=== PATIENT | female | born 1975 | race Caucasian/White ===

== ENCOUNTER 2022-07-15 08:30 | Inpatient (IN) ==
--- NOTE | 2022-07-15 08:55 | Emergency Department Note ---
HPI General Chief complaint: Back Pain/Injury Stated complaint: Upper back pain Time Seen by Provider: 07/15/22 08:54 Source: patient Mode of arrival: ambulatory Limitations: no limitations History of Present Illness HPI Narrative: Narrative: Patient is a 46-year-old female with no significant medical history who presents to the emergency department due to back pain. She states that she fell 2 weeks ago, and since then has had upper back pain on the left. She states that it is sharp in nature and worsens with deep breathing, certain movements, cough, and sneeze. She denies radiation of this pain. She denies any palliative factors. She denies any other concerns at this time. Related Data Home Medications Medication Instructions Recorded Confirmed acyclovir 400 mg tablet 400 mg PO BID 11/28/21 07/15/22 cetirizine 10 mg tablet (Zyrtec) 10 mg PO QDAY PRN allergies 02/11/22 07/15/22 metoclopramide HCl 5 mg tablet 5 mg PO QAC PRN nausea and vomiting 02/11/22 07/15/22 Previous Rx's Medication Instructions Recorded albuterol sulfate 90 mcg/actuation 2 puff inhalation Q4-6H PRN 03/10/22 aerosol inhaler shortness of breath or wheezing #8.5 grams ibuprofen 800 mg tablet 800 mg PO TID PRN pain #90 tabs 03/10/22 gabapentin 400 mg capsule 400 mg PO QHS #30 caps 06/04/22 lurasidone 80 mg tablet (Latuda) 80 mg PO QPM for depressive 06/04/22 disorder #30 tabs ondansetron 4 mg disintegrating 4 mg PO Q8H PRN nausea and 06/10/22 tablet vomiting #90 tabs lamotrigine 25 mg tablet See Rx Instructions .Route 07/01/22 .COMPLEX Mood #45 tabs trazodone 150 mg tablet 150 mg PO HS for insomnia #30 tabs 07/08/22 lorazepam 1 mg tablet 1 mg PO QDAY #28 tabs 07/09/22 nitrofurantoin 100 mg PO BID #10 caps 07/11/22 monohydrate/macrocrystals 100 mg capsule (Macrobid) Allergies Allergy/AdvReac Type Severity Reaction Status Date / Time Sulfa (Sulfonamide Allergy Severe Rash with Verified 07/07/22 15:19 Antibiotics) possible anaphylaxis Review of Systems ROS ROS Narrative: Narrative: Constitutional: Denies fever or weakness Eyes: Denies eye pain or vision change ENT ED: Denies throat pain or rhinorrhea Cardiovascular: Denies chest pain or edema Respiratory: Denies shortness of breath or cough Gastrointestinal: Denies abdominal pain, nausea, vomiting, diarrhea, constipat ion, hematochezia or melena Musculoskeletal: Reports back pain; Denies myalgia Integumentary: Denies rash or lesions Neurological: Denies headache, weakness, numbness, confusion, abnormal gait or dizziness Endocrine: Denies fatigue or polyuria Hematological/Lymphatic: Denies easy bleeding or easy bruising PFSH Narrative Patient History Narrative: Narrative: Medical/Surgical/Family History All Active Problems (Updated 07/15/22 @ 15:03 by Favio Vela MD) Acute pancreatitis (Acute) Irregular periods (Chronic) Hot flashes (Chronic) Night sweats (Chronic) Left hip pain (Chronic) Bipolar disorder (Chronic) Anxiety (Chronic) PTSD (post-traumatic stress disorder) (Chronic) Chronic pain (Chronic) Lumbar radiculopathy (Chronic) Other low back pain (Chronic) History of seizure (Chronic) Tobacco dependence (Chronic) Major depressive disorder, recurrent (Acute) Insomnia (Acute) Medical History Anxiety Chronic pain Depression History of seizure Hot flashes Insomnia Irregular periods Left hip pain Lumbar radiculopathy Major depressive disorder, recurrent Night sweats Other low back pain PTSD (post-traumatic stress disorder) Tobacco dependence Surgical History No pertinent past surgical history Family History Grandfather Dementia Paternal Type 2 diabetes mellitus Maternal Father Type 2 diabetes mellitus Chronic pain Alcohol abuse Bipolar 1 disorder, depressed ADHD Family/Other Type 2 diabetes mellitus Cousins Mother High blood pressure Arthritis Brother Bipolar 1 disorder, depressed Grandmother Bipolar 1 disorder, depressed Other Breast cancer Non-Hodgkins lymphoma Throat cancer Thyroid cancer Social History Smoking Status: Current every day smoker Alcohol Intake Frequency: a few times a week Substance Use: marijuana Exam Narrative Narrative: Narrative: General Limitations: no limitations General appearance: Present alert and in no apparent distress; Absent anxious, appears intoxicated or sleepy Head Head: Present atraumatic and normocephalic Eye Eye: Present EOMI; Absent scleral icterus or nystagmus ENT ENT: Present mucous membranes moist; Absent nasal congestion Neck Neck: Present full ROM; Absent tenderness Chest Chest: Present normal inspection and symmetric chest wall rise; Absent tenderness Respiratory Respiratory: Present normal lung sounds bilaterally; Absent respiratory distress or accessory muscle use Cardiovascular Cardiovascular: Present regular rate, normal rhythm and normal heart sounds Adbominal Abdominal: Present soft and normal bowel sounds; Absent distention, tenderness, guarding, rebound or rigidity Extremities Extremities: Present normal inspection and full ROM; Absent tenderness, pedal edema or pretibial edema Back Back: Present normal inspection, full ROM, tenderness (Left of thoracic spine) and CVA tenderness (L); Absent CVA tenderness (R) Neurological Neurological: Present alert and oriented X3 Psychiatric Psychiatric: Present normal affect and normal mood Skin Skin: Present warm (WNL), dry and normal color Course Vital Signs Vital signs: Vital Signs Temperature 97.5 F 07/15/22 08:31 Pulse Rate 87 07/15/22 08:31 Respiratory Rate 19 07/15/22 08:31 Blood Pressure 102/57 07/15/22 08:31 Pulse Oximetry (%) 98 07/15/22 08:31 Oxygen Delivery Method Room Air 07/15/22 08:31 Temperature 97.5 F 07/15/22 08:31 Pulse Rate 66 07/15/22 14:47 Respiratory Rate 19 07/15/22 08:31 Blood Pressure 100/54 07/15/22 14:47 Pulse Oximetry (%) 95 07/15/22 14:47 Oxygen Delivery Method Room Air 07/15/22 10:06 [facility] Narrative Medical decision making narrative: Narrative: Patient is a 46-year-old female who presents to the emergency department due to back pain. Differential diagnoses include ACS, musculoskeletal chest pain, and pneumonia. Patient has low risk Wells and is PERC negative, so pulmonary embolus is very unlikely. Patient's Chem-8, troponin, and EKG are reassuring. After reevaluation and to discuss findings patient endorsed radiation of the pain into the epigastric area. She still does not have any abdominal tenderness. With abdominal pain, as well as back pain there is some concern for potential pancreatitis. Abdominal labs have been ordered. Patient's hepatic panel is reassuring, but she does have an elevated lipase of 298. This is a likely explanation for abdominal pain and back pain. Patient is now receiving IV fluid and more medication for her pain. I have spoken to Dr. Boyer who has agreed to see and evaluate patient for admission. Lab Data 07/15/22 11:47 Labs: Lab Results 07/15/22 07/15/22 07/15/22 Range/Units 09:43 10:26 11:45 WBC (4.5-11.0) K/mcL RBC (3.59-5.38) M/mcL Hgb (11.2-15.7) g/dL Hct (34.1-44.9) % POC Hct 41.0 (36-48) MCV (80.0-100.0) fL MCH (26.0-34.0) pg MCHC (31.0-36.0) g/dL RDW (11.5-14.5) % Plt Count (140-440) K/mcL MPV (8.8-12.5) fL Immature Gran % (Auto) (0.0-0.5) % Neut % (Auto) (38.0-78.0) % Lymph % (Auto) (15.5-49.0) % [place] % (Auto) (1.0-12.0) % Eos % (Auto) (0.0-7.0) % Baso % (Auto) (0.0-2.0) % Lymph # (Auto) (1.50-4.80) K/mcL [place] # (Auto) (0.10-0.90) K/mcL Eos # (Auto) (0.00-0.70) K/mcL Baso # (Auto) (0.00-0.30) K/mcL Immature Gran # (0.00-0.05) K/mcl Absolute Neutrophils (1.80-8.00) K/mcL POC Sodium 139 (133-145) POC Potassium 4.4 (3.3-5.1) POC Chloride 104 (96-108) POC Total CO2 28.0 (22-30) POC BUN 17 (6-20) POC Creatinine 0.7 (0.6-1.2) POC Glucose 90 (70-105) POC WB Ioniz Calcium 1.24 (1.16-1.32) Total Bilirubin 0.2 (0.1-1.0) mg/dL Direct Bilirubin < 0.2 (0-0.3) mg/dL AST 21 (<32) U/L ALT 17 (<40) U/L Alkaline Phosphatase 71 (39-117) U/L Total Protein 6.8 (5.9-8.4) gm/dL Albumin 4.3 (3.2-5.2) gm/dL Globulin 2.5 (2.2-3.7) gm/dL Lipase 298 H (7-60) U/L Ethyl Alcohol mg/dL < 10.0 mg/dL Ethyl Alcohol g/dL < 0.010 (<0.010) gm/dL 07/15/22 Range/Units 11:47 WBC 9.5 (4.5-11.0) K/mcL RBC 3.95 (3.59-5.38) M/mcL Hgb 13.7 (11.2-15.7) g/dL Hct 40.2 (34.1-44.9) % POC Hct (36-48) MCV 101.8 H (80.0-100.0) fL MCH 34.7 H (26.0-34.0) pg MCHC 34.1 (31.0-36.0) g/dL RDW 11.5 (11.5-14.5) % Plt Count 266 (140-440) K/mcL MPV 10.7 (8.8-12.5) fL Immature Gran % (Auto) 0.2 (0.0-0.5) % Neut % (Auto) 64.0 (38.0-78.0) % Lymph % (Auto) 26.6 (15.5-49.0) % [place] % (Auto) 7.4 (1.0-12.0) % Eos % (Auto) 1.3 (0.0-7.0) % Baso % (Auto) 0.5 (0.0-2.0) % Lymph # (Auto) 2.53 (1.50-4.80) K/mcL [place] # (Auto) 0.70 (0.10-0.90) K/mcL Eos # (Auto) 0.12 (0.00-0.70) K/mcL Baso # (Auto) 0.05 (0.00-0.30) K/mcL Immature Gran # 0.02 (0.00-0.05) K/mcl Absolute Neutrophils 6.10 (1.80-8.00) K/mcL POC Sodium (133-145) POC Potassium (3.3-5.1) POC Chloride (96-108) POC Total CO2 (22-30) POC BUN (6-20) POC Creatinine (0.6-1.2) POC Glucose (70-105) POC WB Ioniz Calcium (1.16-1.32) Total Bilirubin (0.1-1.0) mg/dL Direct Bilirubin (0-0.3) mg/dL AST (<32) U/L ALT (<40) U/L Alkaline Phosphatase (39-117) U/L Total Protein (5.9-8.4) gm/dL Albumin (3.2-5.2) gm/dL Globulin (2.2-3.7) gm/dL Lipase (7-60) U/L Ethyl Alcohol mg/dL mg/dL Ethyl Alcohol g/dL (<0.010) gm/dL EKG Data EKG #1: EKG attestation: Yes I reviewed and interpreted this EKG. EKG results narrative: Sinus bradycardia with a rate of 54, normal axis, [place] 138, QRS of 77, QTC of 361, T wave flattening in aVL, and absence of ST elevation or depression. Discharge Plan Patient/Caregiver Discharge Instructions Pt seen by NITRO MAN/PA only: No Clinical Impression: Acute pancreatitis Patient Disposition: Xfer As Inpt ([facility]) Follow up with: Emerita Hawley PA-C [Primary Care Provider] - Prescriptions: No Action gabapentin 400 mg capsule 400 mg PO QHS Qty: 30 1RF Latuda 80 mg tablet 80 mg PO QPM Qty: 30 1RF lamotrigine 25 mg tablet See Rx Instructions .Route .COMPLEX Qty: 45 0RF Rx Instructions: 1 tab PO daily x 2 weeks, then 2 tabs PO daily Started 07/13. cetirizine [Zyrtec] 10 mg tablet 10 mg PO QDAY PRN (Reason: allergies) metoclopramide HCl 5 mg tablet 5 mg PO QAC PRN (Reason: nausea and vomiting) Rx Instructions: administer 30 minutes before meals ondansetron 4 mg tablet,disintegrating 4 mg PO Q8H PRN (Reason: nausea and vomiting) Qty: 90 2RF trazodone 150 mg tablet 150 mg PO HS Qty: 30 0RF lorazepam 1 mg tablet 1 mg PO QDAY Qty: 28 0RF nitrofurantoin monohyd/m-cryst [Macrobid] 100 mg capsule 100 mg PO BID Qty: 10 0RF Rx Instructions: must administer with a meal/food acyclovir 400 mg tablet 400 mg PO BID albuterol sulfate 90 mcg/actuation HFA aerosol inhaler 2 puff inhalation Q4-6H PRN (Reason: shortness of breath or wheezing) Qty: 8.5 0RF ibuprofen 800 mg tablet 800 mg PO TID PRN (Reason: pain) Qty: 90 3RF
[2022-07-15] MEDS ORDERED: KETOROLAC 60 MG/2 ML VIAL IM ONE (09:41)
[2022-07-15] MEDS ORDERED: LIDOCAINE PATCH TOPICAL ONE (09:41)
[2022-07-15] MEDS ORDERED: CYCLOBENZAPRINE 10 MG TABLET PO ONE (09:41)
--- NOTE | 2022-07-15 10:28 | XRay Report ---
INDICATION: Fall, posterior rib pain/tenderness TECHNIQUE: PA and lateral upright chest x-ray COMPARISON: Previous examination dated 07/23/2001 FINDINGS: Lungs: Lungs are negative. No focal pulmonary parenchymal infiltrate or mass Heart, vascular: No significant cardiomegaly. Pulmonary vascularity is normal. No pulmonary edema or pulmonary congestion Mediastinum, keely: No mediastinal widening. No hilar mass Pleura:No pleural fluid. No pleural-based mass or calcification. There is no hemothorax. No pneumothorax. Thoracic spine, ribs: No thoracic compression fracture. Ribs are negative. No fracture. No lytic lesion IMPRESSION: 1. Negative chest x-ray 2. No significant interval change Interpreted and Authenticated by: Cruz Woodall 07/15/22
[2022-07-15 10:42] LABS: POC Calcium, Ionized 1.24 (1.16-1.32); POC Creatinine 0.7 (0.6-1.2); POC Potassium 4.4 (3.3-5.1)
[2022-07-15] MEDS ORDERED: HYDROcodone/APAP 5/325MG TABLET PO ONE (11:46)
[2022-07-15 12:33] LABS: Basophils # (Auto) 0.05 K/mcL (0.00-0.30); Basophils % (Auto) 0.5 % (0.0-2.0); Eosinophils # (Auto) 0.12 K/mcL (0.00-0.70); Eosinophils % (Auto) 1.3 % (0.0-7.0); Hematocrit 40.2 % (34.1-44.9); Hemoglobin 13.7 g/dL (11.2-15.7); Lymphocytes # (Auto) 2.53 K/mcL (1.50-4.80); Lymphocytes % (Auto) 26.6 % (15.5-49.0); Mean Cell Volume 101.8 fL (80.0-100.0); Mean Corpuscular HGB Conc 34.1 g/dL (31.0-36.0); Mean Platelet Volume 10.7 fL (8.8-12.5); Monocytes % (Auto) 7.4 % (1.0-12.0); Platelet Count 266 K/mcL (140-440); RBC 3.95 M/mcL (3.59-5.38); Red Cell Distribution Width 11.5 % (11.5-14.5); WBC 9.5 K/mcL (4.5-11.0)
[2022-07-15 12:45] LABS: ALT/SGPT 17 U/L (<40); AST/SGOT 21 U/L (<32); Albumin 4.3 gm/dL (3.2-5.2); Alkaline Phosphatase 71 U/L (39-117); Bilirubin,Direct < 0.2 mg/dL (0-0.3); Bilirubin,Total 0.2 mg/dL (0.1-1.0); Globulin 2.5 gm/dL (2.2-3.7)
[2022-07-15] MEDS ORDERED: 0.9 % SODIUM CHLORIDE 1,000 ML IV ONE (12:48)
[2022-07-15] MEDS ORDERED: NICOTINE 21 MG PATCH TOPICAL ONE (13:12)
--- NOTE | 2022-07-15 13:55 | Ultrasound Report ---
INDICATION: Evaluate for gallstones, patient has pancreatitis TECHNIQUE: Grayscale and color flow Doppler spectral imaging COMPARISON: None. FINDINGS: Gallbladder:Negative. No cholelithiasis. No gallbladder wall thickening or pericholecystic fluid Common bile duct:No intra or extrahepatic bile duct dilatation.. Common bile duct measures3 mm Liver:No solid or cystic hepatic mass. Liver contour is smooth. No ascites.. Liver [id number] cm Portal vein:Normal hepatopedal portal venous flow Pancreas:Pancreas appears somewhat echogenic and heterogeneous. No pancreatic mass or peripancreatic abnormality identified. No cystic lesion. No evidence for pseudocyst IMPRESSION: 1. Negative gallbladder. No dilated bile ducts 2. Mildly echogenic and heterogeneous pancreas without focal abnormality Interpreted and Authenticated by: Cruz Woodall 07/15/22
[2022-07-15] MEDS ORDERED: ONDANSETRON 4 MG/2 ML VIAL IV ONE ×3 (14:05→19:29)
[2022-07-15] MEDS ORDERED: HYDROmorphone 0.5 MG/0.5 ML SYRINGE IV ONE (14:05)
[2022-07-15 14:35] LABS: Alcohol, Blood < 10.0 mg/dL; Alcohol,Blood < 0.010 gm/dL (<0.010)
[2022-07-15] MEDS ORDERED: ALBUTEROL SULFATE 60 PUFF INHALER INH PRN (15:11)
[2022-07-15] MEDS ORDERED: CETIRIZINE 10 MG TABLET PO PRN (15:11)
--- NOTE | 2022-07-15 15:28 | Internal Med History&Physical ---
HPI History of Present Illness Patient information: Note initiated : 07/15/22 at 3:16 pm Service Date, if different from initiated Date: [] Patient: Radha Sinclair 46 y/o F admitted on for Upper back pain. Chief Complaint: [back pain, abdoulaye pain, abdominal pain] Chief complaint: back pain, abdoulaye pain, abdominal pain History of present illness: Ms. Sinclair is a 46 year old F history of bipolar disease, depression, anxiety, strangle, recent UTI, presenting with left upper back pain, left flank pain, and left upper abdominal pain. She fainted and fell out 2 weeks ago hitting her head and back, and since then she is constantly experiencing left upper back pain, left flank pain, and left upper abdominal pain. She agreed her pain 7 out of 10 in severity, sharp aching pressure-like burning in nature, constant with waxing waning in timing, with exacerbating factors including coughing defecating and alleviating factors including Tylenol and ibuprofen. She was also recently being diagnosed with urinary tract infections and she is taking Macrobid with last dose tomorrow. She also is complaining of nausea and vomiting but denies any diarrhea or constipations. Vital signs at ED presentations within normal limits. Labs significant for mildly elevated serum lipase 298. Normal LFTs. Normal white count at 9.5. Serum alcohol level <0.01. Abdominal ultrasound negative gallbladder. No dilated bile ducts. It also shows mildly echogenic and heterogeneous pancreas without focal abnormalities. Admission request is called for idiopathic pancreatitis. Constitutional Constitutional: Absent chills, excessive sweating, fatigue, fever(s) or weakness EENT Eyes: Absent blurry vision, change in vision, loss of vision or other visual disturbances Ears: Absent decreased hearing or tinnitus Nose, mouth and throat: Absent abnormal hearing, dry mouth, headache(s), nasal congestion or sore throat Cardiovascular Cardiovascular: Absent chest pain, chest pain at rest, edema, irregular heart rhythm or palpatations Respiratory Respiratory: Absent cough, dyspnea or wheezing Gastrointestinal Gastrointestinal: Present abdominal pain, nausea and vomiting; Absent constipation or diarrhea Musculoskeletal Musculoskeletal: Present back pain; Absent deformity, limited range of motion, muscle cramps, muscle weakness or numbness Integumentary Integumentary: Absent lesions, rash or wounds Neurological Neurological: Absent focal weakness, headache(s) or numbness Psychiatric Psychiatric: Absent anxiety, depression or hallucinations PFSH PFSH All Active Problems (Updated 07/15/22 @ 15:37 by Moris Boyer MD) Shingles (Acute) UTI (urinary tract infection) (Acute) Subacute pancreatitis (Acute) Acute pancreatitis (Acute) Irregular periods (Chronic) Hot flashes (Chronic) Night sweats (Chronic) Left hip pain (Chronic) Bipolar disorder (Chronic) Anxiety (Chronic) PTSD (post-traumatic stress disorder) (Chronic) Chronic pain (Chronic) Lumbar radiculopathy (Chronic) Other low back pain (Chronic) History of seizure (Chronic) Tobacco dependence (Chronic) Major depressive disorder, recurrent (Acute) Insomnia (Acute) Medical History Anxiety Chronic pain Depression History of seizure Hot flashes Insomnia Irregular periods Left hip pain Lumbar radiculopathy Major depressive disorder, recurrent Night sweats Other low back pain PTSD (post-traumatic stress disorder) Tobacco dependence Surgical History No pertinent past surgical history Family History Grandfather Dementia Paternal Type 2 diabetes mellitus Maternal Father Type 2 diabetes mellitus Chronic pain Alcohol abuse Bipolar 1 disorder, depressed ADHD Family/Other Type 2 diabetes mellitus Cousins Mother High blood pressure Arthritis Brother Bipolar 1 disorder, depressed Grandmother Bipolar 1 disorder, depressed Other Breast cancer Non-Hodgkins lymphoma Throat cancer Thyroid cancer Social History adopted: No foster care: No household members: family housing: house lives independently: Yes marital status: education level: vocational service: No 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 smoking status: Current every day smoker tobacco type: cigarettes per day: 20 pack-years: 30 counseling given: patient declined alcohol intake frequency: a few times a week substance use type: marijuana lobo/bahai: [employer] MEDS/ALLERGIES Home Medications and Allergies Home Medications Medication Instructions Recorded Confirmed Type acyclovir 400 mg tablet 400 mg PO BID 11/28/21 07/15/22 History cetirizine 10 mg tablet (Zyrtec) 10 mg PO QDAY PRN allergies 02/11/22 07/15/22 History metoclopramide HCl 5 mg tablet 5 mg PO QAC PRN nausea and vomiting 02/11/22 07/15/22 History albuterol sulfate 90 mcg/actuation 2 puff inhalation Q4-6H PRN 03/10/22 07/15/22 Rx aerosol inhaler shortness of breath or wheezing #8.5 grams ibuprofen 800 mg tablet 800 mg PO TID PRN pain #90 tabs 03/10/22 07/15/22 Rx gabapentin 400 mg capsule 400 mg PO QHS #30 caps 06/04/22 07/15/22 Rx lurasidone 80 mg tablet (Latuda) 80 mg PO QPM for depressive 06/04/22 07/15/22 Rx disorder #30 tabs ondansetron 4 mg disintegrating 4 mg PO Q8H PRN nausea and 06/10/22 07/15/22 Rx tablet vomiting #90 tabs lamotrigine 25 mg tablet See Rx Instructions .Route 07/01/22 07/15/22 Rx .COMPLEX Mood #45 tabs trazodone 150 mg tablet 150 mg PO HS for insomnia #30 tabs 07/08/22 07/15/22 Rx lorazepam 1 mg tablet 1 mg PO QDAY #28 tabs 07/09/22 07/15/22 Rx nitrofurantoin 100 mg PO BID #10 caps 07/11/22 07/15/22 Rx monohydrate/macrocrystals 100 mg capsule (Macrobid) Allergies Allergy/AdvReac Type Severity Reaction Status Date / Time Sulfa (Sulfonamide Allergy Severe Rash with Verified 07/07/22 15:19 Antibiotics) possible anaphylaxis EXAM Constitutional Vitals: Temp Pulse Resp BP Pulse Ox O2 Del Method 36.4 C 69 19 106/72 96 Room Air 07/15/22 08:07/15/22 15:07/15/22 08:31 07/15/22 15:07/15/22 15:07/15/22 10:06 General appearance: cooperative and no acute distress Head Head exam: Present atraumatic and normocephalic Eye Eye exam: Present EOMI and PERRL ENT ENT exam: Present mucous membranes moist, normal exam and normal external ear exam Neck Neck exam: Present normal inspection; Absent lymphadenopathy, tenderness or thyromegaly Respiratory Respiratory exam: Absent accessory muscle use, respiratory distress or wheezes Cardiovascular Cardiovascular exam: Present normal rate and rhythm; Absent JVD GI/Abdominal GI/Abdominal exam: Present normal bowel sounds and soft; Absent organomegaly or tenderness Extremities Exam Extremities exam: Present full ROM, normal capillary refill and normal inspection; Absent tenderness Neurological Exam Neurological exam: Present alert, CN II-XII intact and oriented X3; Absent motor sensory deficit Psychiatric Psychiatric exam: Present normal affect and normal mood; Absent anxious or depressed Skin Skin exam: Present dry and intact DATA Data Completed and Pending Labs: Labs from last 24 hours 07/15/22 07/15/22 07/15/22 11:47 11:45 10:26 WBC 9.5 RBC 3.95 Hgb 13.7 Hct 40.2 POC Hct 41.0 MCV 101.8 H MCH 34.7 H MCHC 34.1 RDW 11.5 Plt Count 266 MPV 10.7 Immature Gran % (Auto) 0.2 Neut % (Auto) 64.0 Lymph % (Auto) 26.6 [place] % (Auto) 7.4 Eos % (Auto) 1.3 Baso % (Auto) 0.5 Lymph # (Auto) 2.53 [place] # (Auto) 0.70 Eos # (Auto) 0.12 Baso # (Auto) 0.05 Immature Gran # 0.02 Absolute Neutrophils 6.10 POC Sodium 139 POC Potassium 4.4 POC Chloride 104 POC Total CO2 28.0 POC BUN 17 POC Creatinine 0.7 POC Glucose 90 POC WB Ioniz Calcium 1.24 Total Bilirubin 0.2 Direct Bilirubin < 0.2 AST 21 ALT 17 Alkaline Phosphatase 71 Total Protein 6.8 Albumin 4.3 Globulin 2.5 Lipase 298 H Ethyl Alcohol mg/dL Ethyl Alcohol g/dL 07/15/22 09:43 WBC RBC Hgb Hct POC Hct MCV MCH MCHC RDW Plt Count MPV Immature Gran % (Auto) Neut % (Auto) Lymph % (Auto) [place] % (Auto) Eos % (Auto) Baso % (Auto) Lymph # (Auto) [place] # (Auto) Eos # (Auto) Baso # (Auto) Immature Gran # Absolute Neutrophils POC Sodium POC Potassium POC Chloride POC Total CO2 POC BUN POC Creatinine POC Glucose POC WB Ioniz Calcium Total Bilirubin Direct Bilirubin AST ALT Alkaline Phosphatase Total Protein Albumin Globulin Lipase Ethyl Alcohol mg/dL < 10.0 Ethyl Alcohol g/dL < 0.010 A/P Assessment and plan (1) Subacute pancreatitis: Status: Acute (2) Bipolar disorder: Status: Chronic (3) Anxiety: Status: Chronic (4) Major depressive disorder, recurrent: Status: Acute (5) UTI (urinary tract infection): Status: Acute (6) Shingles: Status: Acute Narrative A/P Narrative: Assessment and Plans: 1. Subacute idiopathic pancreatitis: DDx: traumatic Inpatient med surg Clear liquid diet, advance as tolerated s/p IV fluid bolus given in the ED, to be followed by NS@150cc/hr Zofran Tylenol Ibuprofen Oxycodone Morphine Repeat lipase in the AM to trend 2. Bipolar depression with anxiety: Lamotrigine Lurasidone Ativan 3. [place]: Acyclovir 4. Recent UTI: Finishing Macrobid on 07/16 GI ppx : not currently indicated DVT ppx: Lovenox Code status: Full Prognosis: stable Disposition: inpatient med surg Time Spent With Patient Time: Total time spent is greater than 50% in coordination of care (as documented) at patient's floor/unit and/or counseling patient: Initial: Total time with patient: 55 - 74 minutes
[2022-07-15] MEDS ORDERED: morphine 4 MG/ML VIAL IV ONE (15:45)
[2022-07-15] MEDS ORDERED: IPRATROPIUM/ALBUTEROL 3 ML AMPUL.NEB NEB PRN (16:37)
[2022-07-15] MEDS ORDERED: ONDANSETRON 4 MG/2 ML VIAL IV PRN (16:37)
[2022-07-15] MEDS: oxyCODONE HCL 5 MG TABLET PO PRN (16:56)
[2022-07-15] MEDS: 0.9 % SODIUM CHLORIDE 1,000 ML IV SCH (17:05)
[2022-07-15] MEDS: IBUPROFEN 800 MG TABLET PO PRN (20:15)
[2022-07-15] MEDS: DOCUSATE SODIUM 100 MG CAPSULE PO SCH (20:52)
[2022-07-15] MEDS: ACYCLOVIR 400 MG TABLET PO SCH (20:52)
[2022-07-15] MEDS: NITROFURANTOIN SR 100 MG CAPSULE PO SCH (20:52)
[2022-07-15] MEDS: GABAPENTIN 400 MG CAPSULE PO SCH (20:52)
[2022-07-15] MEDS: SENNOSIDES 1 TABLET PO SCH (20:53)
[2022-07-15] MEDS: traZODone HCL 150 MG TABLET PO SCH (20:53)
[2022-07-15] MEDS ORDERED: LATUDA 80MG PO SCH (21:00)
[2022-07-15] MEDS: LORazepam 1 MG TABLET PO SCH (21:05)
[2022-07-15] MEDS: lamoTRIgine 25 MG TABLET PO SCH ×2 (21:05→21:33)
[2022-07-15] MEDS: morphine 4 MG/ML VIAL IV PRN (21:46)
[2022-07-15] MEDS: 0.9 % SODIUM CHLORIDE 10 ML SYRINGE IV SCH (22:12)
[2022-07-16] MEDS: 0.9 % SODIUM CHLORIDE 10 ML SYRINGE IV SCH ×3 (05:39→23:32)
[2022-07-16] MEDS: 0.9 % SODIUM CHLORIDE 1,000 ML IV SCH ×4 (06:08→19:46)
[2022-07-16] MEDS: ENOXAPARIN 40 MG/0.4 ML SYRINGE SQ SCH (08:22)
[2022-07-16] MEDS: ACYCLOVIR 400 MG TABLET PO SCH ×2 (08:23→20:24)
[2022-07-16] MEDS: DOCUSATE SODIUM 100 MG CAPSULE PO SCH ×2 (08:23→20:26)
[2022-07-16] MEDS: NITROFURANTOIN SR 100 MG CAPSULE PO SCH (08:23)
[2022-07-16] MEDS: morphine 4 MG/ML VIAL IV PRN ×2 (08:23→12:54)
[2022-07-16] MEDS ORDERED: LORazepam 1 MG TABLET PO SCH (09:00)
[2022-07-16] MEDS ORDERED: lamoTRIgine 25 MG TABLET PO SCH (09:00)
[2022-07-16] MEDS: LORazepam 1 MG TABLET PO SCH ×2 (09:12→20:23)
[2022-07-16] MEDS: IBUPROFEN 800 MG TABLET PO PRN (12:50)
[2022-07-16] MEDS: NICOTINE 21 MG PATCH TOPICAL SCH ×2 (12:56→13:02)
--- NOTE | 2022-07-16 13:48 | EKG ---
[facility] Test Date: 2022-07-15 Pat Name: Radha Sinclair Department: ED Room: Gender: Female Podiatrist: JUAN J : 1975 Requested By: Favio Vela Order Number: [id number] Reading MD: Isaiah Pino Measurements Intervals [place] Rate: 54 P: 57 RI: 138 QRS: 80 QRSD: 77 T: 66 QT: 382 QTc: 361 Interpretive Statements Sinus rhythm Electronically Signed On 07-16-2022 13:48:13 PST by Isaiah Pino /store/[email or web address]/[id number]
--- NOTE | 2022-07-16 15:38 | Internal Med Progress Note ---
SUBJECTIVE Subjective Patient information: Note initiated : 07/16/22 at 3:36 pm Service Date, if different from initiated Date: [] Patient: Radha Sinclair 46 y/o F admitted on 07/15/22 for Upper back pain. Chief Complaint: [] Interval history: Ms. Sinclari is a 46 year old F history of bipolar disease, depression, anxiety, strangle, recent UTI, presenting with left upper back pain, left flank pain, and left upper abdominal pain. She fainted and fell out 2 weeks ago hitting her head and back, and since then she is constantly experiencing left upper back pain, left flank pain, and left upper abdominal pain. She agreed her pain 7 out of 10 in severity, sharp aching pressure-like burning in nature, constant with waxing waning in timing, with exacerbating factors including coughing defecating and alleviating factors including Tylenol and ibuprofen. She was also recently being diagnosed with urinary tract infections and she is taking Macrobid with last dose tomorrow. She also is complaining of nausea and vomiting but denies any diarrhea or constipations. Vital signs at ED presentations within normal limits. Labs significant for mildly elevated serum lipase 298. Normal LFTs. Normal white count at 9.5. Serum alcohol level <0.01. Abdominal ultrasound negative gallbladder. No dilated bile ducts. It also shows mildly echogenic and heterogeneous pancreas without focal abnormalities. Admission request is called for idiopathic pancreatitis. 07/16: Patient's current abdominal pain level 1 out of 10. She denies any nausea or vomiting at the moment. She could only tolerate applesauce today. Her she is still requesting morphine and Zofran for pain and nausea control, respectively. Lipase level down trended. Continue IV fluid for rehydration purposes. Continue to provide antiemetics and narcotics for nausea vomiting and pain control, respectively. Encourage patient to advance her diet as tolerated. Keep the patient in inpatient MedSurg. Constitutional Vitals: Vital Signs Temp Pulse Resp BP Pulse Ox O2 Del Method 36.9 C 65 20 109/55 98 Room Air 07/16/22 12:00 07/16/22 12:00 07/16/22 12:00 07/16/22 12:00 07/16/22 12:07/16/22 12:00 Period Temp Pulse Resp BP Sys/Moss Pulse Ox O2 Del Method O2 Flow Rate Last 24 Hr 36.5 C-36.9 C 58-79 16-20 86-109/45-58 93-99 Room Air-Room Air Intake and Output 07/16/22 07/16/22 07/16/22 03:59 11:59 19:59 Intake Total 1800 1260 1000 Output Total 600 600 375 Balance 1200 660 625 Weight 56.784 kg 56.784 kg Patient Weight 07/17/22 03:59 Weight 56.784 kg Intake & Output: Intake & Output 07/16/22 07/16/22 07/16/22 03:59 11:59 19:59 Intake Total 1800 1260 1000 Output Total 600 600 375 Balance 1200 660 625 Weight 56.784 kg 56.784 kg Intake: IV 0072 811 6267 Sodium Chloride 0.9% 1,000 ml @ 0083 541 4099 150 mls/hr IV .Q6H40M [facility] Rx#: [id number] Oral 800 340 Output: Void Amount 600 600 375 Other: Meal Breakfast Percent of Meal Consumed 100% Urine Appearance Clear Clear Urine Color Yellow Yellow Urine Odor Normal Normal # Voids 1 Head Head exam: Present atraumatic and normal inspection Eye Eye exam: Present normal appearance ENT ENT exam: Present mucous membranes moist, normal exam and normal external ear exam Neck Neck exam: Present normal inspection Respiratory Respiratory exam: Present normal respiratory exam Cardiovascular Cardiovascular exam: Present normal rate and rhythm GI/Abdominal GI/Abdominal exam: Present normal bowel sounds Back Exam Back exam: Present normal inspection Neurological Exam Neurological exam: Present alert and oriented X3 Skin Skin exam: Present intact and warm OBJ DATA Labs 07/15/22 11:47 Labs: Abnormal Lab Results 07/15/22 07/15/22 07/15/22 18:32 11:47 11:45 MCV 101.8 H MCH 34.7 H Lipase 158 H 298 H Meds: Medications Acetaminophen (Acetaminophen 325 Mg Tablet) 650 mg PO Q6HP PRN; Protocol PRN Reason: Per Pain Protocol/Fever > 101 Acyclovir (Acyclovir 400 Mg Tablet) 400 mg PO BID [facility]; Protocol Last Admin: 07/16/22 08:23 Dose: 400 mg Albuterol Sulfate (Albuterol Sulfate 60 Puff Inhaler) 2 puff INH Q4-6HP PRN PRN Reason: shortness of breath or wheezing Albuterol/Ipratropium (Ipratropium/Albuterol 3 Ml Ampul.Neb) 3 ml NEB Q4HRT PRN PRN Reason: Wheezing Cetirizine HCl (Cetirizine 10 Mg Tablet) 10 mg PO DAILYP PRN PRN Reason: allergies Docusate Sodium (Docusate Sodium 100 Mg Capsule) 100 mg PO BID [facility] Last Admin: 07/16/22 08:23 Dose: 100 mg Enoxaparin Sodium (Enoxaparin 40 Mg/0.4 Ml Syringe) 40 mg SQ DAILY [facility] Last Admin: 07/16/22 08:22 Dose: 40 mg Gabapentin (Gabapentin 400 Mg Capsule) 400 mg PO QHS [facility] Last Admin: 07/15/22 20:52 Dose: 400 mg Sodium Chloride (Sodium Chloride 0.9%) 1,000 mls @ 150 mls/hr IV .Q6H40M [facility] Last Admin: 07/16/22 12:58 Dose: 150 mls/hr Ibuprofen (Ibuprofen 800 Mg Tablet) 800 mg PO TIDP PRN; Protocol PRN Reason: pain Last Admin: 07/15/22 20:15 Dose: 800 mg Lamotrigine (Lamotrigine 25 Mg Tablet) 25 mg PO [facility] Stop: 07/22/22 21:01 Last Admin: 07/15/22 21:33 Dose: Not Given Lamotrigine (Lamotrigine 25 Mg Tablet) 50 mg PO [facility] Lorazepam (Lorazepam 1 Mg Tablet) 1 mg PO BID [facility] Last Admin: 07/16/22 09:12 Dose: 1 mg Morphine Sulfate (Morphine 4 Mg/Ml Vial) 4 mg IV Q4HP PRN; Protocol PRN Reason: Per Pain Protocol Last Admin: 07/16/22 12:54 Dose: 4 mg Nicotine (Nicotine 21 Mg Patch) 21 mg TOPICAL DAILY@1000 [facility] Last Admin: 07/16/22 13:02 Dose: 21 mg Ondansetron HCl (Ondansetron 4 Mg/2 Ml Vial) 4 mg IV Q6HP PRN PRN Reason: Nausea And Vomiting Oxycodone HCl (Oxycodone Hcl 5 Mg Tablet) 5 mg PO Q4HP PRN; Protocol PRN Reason: Per Pain Protocol Last Admin: 07/15/22 16:56 Dose: 5 mg Lurasidone [Latuda] (80 Mg Tablet) 1 dose PO QPM [facility] Senna (Sennosides 1 Tablet) 2 tab PO [facility] Last Admin: 07/15/22 20:53 Dose: 2 tab Sodium Chloride (0.9 % Sodium Chloride 10 Ml Syringe) 10 ml IV Q8 [facility] Last Admin: 07/16/22 14:48 Dose: Not Given Trazodone HCl (Trazodone Hcl 150 Mg Tablet) 150 mg PO [facility] Last Admin: 07/15/22 20:53 Dose: 150 mg A/P Assessment and plan (1) Subacute pancreatitis: Status: Acute (2) Bipolar disorder: Status: Chronic (3) Anxiety: Status: Chronic (4) Major depressive disorder, recurrent: Status: Acute (5) UTI (urinary tract infection): Status: Acute (6) Shingles: Status: Acute Narrative A/P Narrative: Assessment and Plans: 1. Subacute idiopathic pancreatitis: DDx: traumatic Inpatient med surg Clear liquid diet, advance as tolerated s/p IV fluid bolus given in the ED, to be followed by NS@150cc/hr Zofran Tylenol Ibuprofen Oxycodone Morphine 2. Bipolar depression with anxiety: Lamotrigine Lurasidone Ativan 3. Shingle: Acyclovir 4. Recent UTI: Finishing Macrobid on 07/16 GI ppx : not currently indicated DVT ppx: Lovenox Code status: Full Prognosis: stable Disposition: inpatient med surg Time Spent With Patient Time: Total time spent is greater than 50% in coordination of care (as documented) at patient's floor/unit and/or counseling patient: Subsequent: Total time with patient: 35 - 49 minutes QUALITY VTE Deep Vein Thrombosis/Pulmonary Embolism Present on Admission: No
[2022-07-16] MEDS: lamoTRIgine 25 MG TABLET PO SCH (20:23)
[2022-07-16] MEDS: traZODone HCL 150 MG TABLET PO SCH (20:23)
[2022-07-16] MEDS: GABAPENTIN 400 MG CAPSULE PO SCH (20:24)
[2022-07-16] MEDS: SENNOSIDES 1 TABLET PO SCH (20:26)
[2022-07-16] MEDS: oxyCODONE HCL 5 MG TABLET PO PRN (20:32)
[2022-07-16] MEDS: ACETAMINOPHEN 325 MG TABLET PO PRN (20:33)
[2022-07-17] MEDS: 0.9 % SODIUM CHLORIDE 1,000 ML IV SCH ×2 (02:32→08:30)
[2022-07-17] MEDS: 0.9 % SODIUM CHLORIDE 10 ML SYRINGE IV SCH (05:35)
[2022-07-17] MEDS: ACETAMINOPHEN 325 MG TABLET PO PRN (07:05)
[2022-07-17] MEDS: oxyCODONE HCL 5 MG TABLET PO PRN (07:06)
[2022-07-17] MEDS: LORazepam 1 MG TABLET PO SCH (07:20)
[2022-07-17] MEDS: morphine 4 MG/ML VIAL IV PRN (08:25)
--- NOTE | 2022-07-17 08:27 | Discharge Summary ---
Discharge Provider Provider IMPORTANT FOLLOW-UP INFORMATION FOR PCP: Patient information: Note initiated : 07/17/22 at 8:25 am Service Date, if different from initiated Date: [] Patient: Radha Sinclair 46 y/o F admitted on 07/15/22 for Upper back pain. Chief Complaint: [] Date of admission: 07/15/22 16:32 Discharge date: 07/17/22 Primary care physician: Emerita Hawley PA-C Attending physician on admission: Moris Boyer Consults: 07/15/22 Consult to Physician [CONS] Stat Comment: Consulting Provider: Moris Boyer Reason For Exam: Physician to Consult Attending physician on discharge: Moris Boyer COURSE Hospital Course Hospital course: Ms. Sinclair is a 46 year old F history of bipolar disease, depression, anxiety, strangle, recent UTI, presenting with left upper back pain, left flank pain, and left upper abdominal pain. She fainted and fell out 2 weeks ago hitting her head and back, and since then she is constantly experiencing left upper back pain, left flank pain, and left upper abdominal pain. She agreed her pain 7 out of 10 in severity, sharp aching pressure-like burning in nature, constant with waxing waning in timing, with exacerbating factors including coughing defecating and alleviating factors including Tylenol and ibuprofen. She was also recently being diagnosed with urinary tract infections and she is taking Macrobid with last dose tomorrow. She also is complaining of nausea and vomiting but denies any diarrhea or constipations. Vital signs at ED presentations within normal limits. Labs significant for mildly elevated serum lipase 298. Normal LFTs. Normal white count at 9.5. Serum alcohol level <0.01. Abdominal ultrasound negative gallbladder. No dilated bile ducts. It also shows mildly echogenic and heterogeneous pancreas without focal abnormalities. Admission request is called for idiopathic pancreatitis. 2: Patient's current abdominal pain level 1 out of 10. She denies any nausea or vomiting at the moment. She could only tolerate applesauce today. Her she is still requesting morphine and Zofran for pain and nausea control, respectively. Lipase level down trended. Continue IV fluid for rehydration purposes. Continue to provide antiemetics and narcotics for nausea vomiting and pain control, respectively. Encourage patient to advance her diet as tolerated. Keep the patient in inpatient MedSurg. 2/: Discharged home. Rx given. 2 week PCP follow up appointment made for her. All questions were answered prior to patient being physically discharged. Discharge diagnosis: Subacute pancreatitis Time Spent with Patient Time attestation: Total time spent providing and/or coordinating discharge services: Time spent: Less than 30 minutes EXAM Constitutional Vitals: Temp Pulse Resp BP Pulse Ox O2 Del Method 36.4 C 73 14 108/62 95 Room Air 07/17/22 04:00 07/17/22 04:00 07/17/22 04:00 07/17/22 04:00 07/17/22 04:00 07/17/22 04:00 General appearance: cooperative and no acute distress Head Head exam: Present atraumatic and normocephalic Eye Eye exam: Present EOMI and PERRL ENT ENT exam: Present mucous membranes moist, normal exam and normal external ear exam Neck Neck exam: Present normal inspection; Absent lymphadenopathy, tenderness or thyromegaly Respiratory Respiratory exam: Absent accessory muscle use, respiratory distress or wheezes Cardiovascular Cardiovascular exam: Present normal rate and rhythm; Absent JVD GI/Abdominal GI/Abdominal exam: Present normal bowel sounds and soft; Absent organomegaly or tenderness Extremities Exam Extremities exam: Present full ROM, normal capillary refill and normal inspection; Absent tenderness Neurological Exam Neurological exam: Present alert, CN II-XII intact and oriented X3; Absent motor sensory deficit Psychiatric Psychiatric exam: Present normal affect and normal mood; Absent anxious or depressed Skin Skin exam: Present dry and intact Discharge Data Data Completed and Pending Labs on day of discharge: Labs from last 24 hours 07/16/22 05:12 Lipase 35 Discharge Plan Patient/Caregiver Discharge Instructions Activity: increase activity as tolerated Diet: Regular Diet Prescriptions: New nicotine [Nicoderm CQ] 21 mg/24 hr Patch 24 Hour 21 mg topical DAILY@1000 Qty: 30 0RF oxycodone 5 mg Tablet 5 mg PO Q4HP PRN (Reason: Per Pain Protocol) Qty: 20 0RF Continued gabapentin 400 mg capsule 400 mg PO QHS Qty: 30 1RF Latuda 80 mg tablet 80 mg PO QPM Qty: 30 1RF lamotrigine 25 mg tablet See Rx Instructions .Route .COMPLEX Qty: 45 0RF Rx Instructions: 1 tab PO daily x 2 weeks, then 2 tabs PO daily Started 07/13. cetirizine [Zyrtec] 10 mg tablet 10 mg PO QDAY PRN (Reason: allergies) trazodone 150 mg tablet 150 mg PO HS Qty: 30 0RF lorazepam 1 mg tablet 1 mg PO QDAY Qty: 28 0RF acyclovir 400 mg tablet 400 mg PO BID albuterol sulfate 90 mcg/actuation HFA aerosol inhaler 2 puff inhalation Q4-6H PRN (Reason: shortness of breath or wheezing) Qty: 8.5 0RF ibuprofen 800 mg tablet 800 mg PO TID PRN (Reason: pain) Qty: 90 3RF metoclopramide HCl 5 mg tablet 5 mg PO QAC PRN (Reason: nausea and vomiting) Qty: 20 0RF Rx Instructions: administer 30 minutes before meals ondansetron 4 mg tablet,disintegrating 4 mg PO Q8H PRN (Reason: nausea and vomiting) Qty: 20 2RF Discontinued nitrofurantoin monohyd/m-cryst [Macrobid] 100 mg capsule 100 mg PO BID Qty: 10 0RF Rx Instructions: must administer with a meal/food Follow Up Plan Follow up with: Emerita Hawley PA-C [Primary Care Provider] - Patient Disposition: Home, Self-Care Rehab Potential: Good I certify that the patient requires SNF services: No Overall status at discharge: patient is progressing back to baseline Discharge Orders: Discharge Order (Routine); Ordered 07/17/22 Ordered By: Moris NATHAN VTE Deep Vein Thrombosis/Pulmonary Embolism Present on Admission: No
[2022-07-17] MEDS ORDERED: NICOTINE 21 MG PATCH TOPICAL SCH (10:00)
[2022-07-17] MEDS: ACYCLOVIR 400 MG TABLET PO SCH (10:19)
[2022-07-17] MEDS: NICOTINE 21 MG PATCH TOPICAL SCH (10:19)
[2022-07-17] MEDS: ENOXAPARIN 40 MG/0.4 ML SYRINGE SQ SCH (10:21)
[2022-07-17] MEDS: DOCUSATE SODIUM 100 MG CAPSULE PO SCH (10:21)
[2022-07-23] MEDS ORDERED: lamoTRIgine 25 MG TABLET PO SCH (21:00)
[2022-07-25] MEDS ORDERED: lamoTRIgine 25 MG TABLET PO SCH (09:00)
== END 2022-07-17 10:30 | disposition home or self-care (01) | DRG 439 ==
LOC: ED 08:30 → MEDSUR 16:32
PROVIDERS: ADMIT Internal Medicine; ATTEND Internal Medicine